=== PATIENT | male | born 1950 | race Caucasian/White ===

== ENCOUNTER 2016-10-21 19:17 | Emergency (ER) | payer MEDICARE, OTHER ==
[2016-10-21 19:35] VITALS: BP 91/62
[2016-10-21] MEDS ORDERED: Lactated Ringers 1,000 ML IV ONE ×2 (19:35→19:50)
[2016-10-21] MEDS ORDERED: Ondansetron 4 MG/2 ML SDV IVPUSH ONE (19:52)
[2016-10-21] MEDS ORDERED: fentaNYL 100 MCG/2 ML SDV IVPUSH ONE ×2 (19:52→20:27)
[2016-10-21] MEDS ORDERED: fentaNYL 100 MCG/2 ML SDV ONE (20:30)
[2016-10-21] MEDS ORDERED: Lactated Ringers 1,000 ML IV SCH (20:45)
[2016-10-21] MEDS ORDERED: HYDROmorphone 0.5 MG/0.5 ML Syringe ONE (20:49)
--- NOTE | 2016-10-21 20:52 | EDM.PDOC ---
ED HPI GENERAL MEDICAL PROBLEM - General Chief Complaint: Back Pain or Injury Stated Complaint: FLIPPED BY A COW Time Seen by Provider: 10/21/16 19:17 - History of Present Illness INITIAL COMMENTS - FREE TEXT/NARRATIVE: 66-year-old male presents to the emergency room after being injured. 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 This occurred about an hour and a half prior to arrival. The patient is having significant difficulty trying to ambulate. He has discomfort mostly around his pelvis he has some neck discomfort and some left elbow discomfort. He has some vague lower abdominal discomfort he has not had any nausea or vomiting. He has some neck discomfort and some discomfort at the base of the skull. He denies any loss of consciousness with this. Past medical history significant for hypertension he's not sure exactly what medications he is is on we later did confirm his medications. Lower Back Pain Score (Numeric/FACES): 10 - Related Data Allergies Allergy/AdvReac Type Severity Reaction Status Date / Time No Known Allergies Allergy Verified 10/21/16 19:26 Home Meds: Home Meds Aspirin 81 mg PO DAILY 10/21/16 [History] Fenofibrate 160 mg PO DAILY 10/21/16 [History] Hydrochlorothiazide 25 mg PO BEDTIME 10/21/16 [History] Lisinopril [Zestril] 40 mg PO DAILY 10/21/16 [History] Past Medical History Cardiovascular History: Reports: High Cholesterol, Hypertension Review of Systems - Review of Systems Review Of Systems: See Below Constitutional: Reports: No Symptoms Eyes: Reports: No Symptoms Ears: Reports: No Symptoms Nose: Reports: No Symptoms Mouth/Throat: Reports: No Symptoms Respiratory: Reports: No Symptoms, Pleuritic Chest Pain Cardiovascular: Reports: No Symptoms GI/Abdominal: Reports: Abdominal Pain. Denies: Constipation, Diarrhea, Nausea, Vomiting Genitourinary: Reports: No Symptoms Musculoskeletal: Reports: Neck Pain, Back Pain Skin: Reports: No Symptoms Neurological: Reports: No Symptoms Psychiatric: Reports: No Symptoms ED EXAM, GENERAL - Physical Exam Exam: See Below Exam Limited By: Other (Langlois coma score 15) General Appearance: Alert, No Apparent Distress, Other (He is not tachycardic but his initial blood pressures were in the upper 80s to lower 90s) Eye Exam: Bilateral Eye: EOMI, Normal Inspection, PERRL Ears: Normal External Exam, Normal Canal, Hearing Grossly Normal, Normal TMs Nose: Normal Inspection, Normal Mucosa, No Blood Throat/Mouth: Normal Inspection, Normal Oropharynx, No Airway Compromise Head: Atraumatic, Normocephalic, Other (He has discomfort at the insertion of the paraspinous muscles) Neck: Normal Inspection, Tender Lateral Respiratory/Chest: No Respiratory Distress, Lungs Clear, Normal Breath Sounds, Other (He has some vague chest wall discomfort) Cardiovascular: Regular Rate, Rhythm, No Edema, No Murmur GI/Abdominal: Normal Bowel Sounds, Soft, Non-Tender (Male) Exam: Other (No blood at the meatus). No: Inguinal Lymphadenopathy, Scrotal Swelling Back Exam: Other (Early on the patient was log rolled no step-off deformities he did have some discomfort especially in the lumbar spine and upper thoracic ) Extremities: Other (He has pelvic tenderness however no crepitation left femur is uncomfortable with palpation elbow on the left is sore however he has intact flexion extension supination pronation) Neurological: Alert, Oriented, CN II-XII Intact, Normal Cognition Psychiatric: Normal Affect, Normal Mood Course - Vital Signs Last Recorded V/S: Last Vital Signs Temp 35.8 C 10/21/16 19:26 Pulse 69 10/21/16 19:26 Resp 18 10/21/16 19:26 BP 91/62 10/21/16 19:26 Pulse Ox 96 10/21/16 19:26 - Orders/Labs/Meds Orders: Active Orders 24 hr Category Date Time Status Cervical Spine wo Cont [CT] Stat Exams 10/21/16 19:46 Taken Chest Abdomen Pelvis w Cont [CT] Stat Exams 10/21/16 19:46 Taken Elbow 2V Lt [CR] Stat Exams 10/21/16 22:43 Ordered Femur Min 2V Lt [CR] Stat Exams 10/21/16 22:42 Ordered Head wo Cont [CT] Stat Exams 10/21/16 19:46 Ordered Lumbar Spine wo Cont [CT] Stat Exams 10/21/16 19:46 Taken Thoracic Spine wo Cont [CT] Stat Exams 10/21/16 19:46 Taken UA W/O MICROSCOPIC [URIN] Stat Lab 10/21/16 19:48 Uncollected Lactated Ringers [Ringers, Lactated] 1,000 ml Med 10/21/16 20:45 Active IV ASDIRECTED Medication Orders Lactated Ringer's (Ringers, Lactated) 1,000 mls @ 125 mls/hr IV ASDIRECTED SITA Last Admin: 10/21/16 20:43 Dose: 125 mls/hr Labs: Laboratory Tests 10/21/16 10/21/16 10/21/16 Range/Units 19:30 19:30 19:30 WBC 15.28 H (4.23-9.07) K/mm3 RBC 4.23 L (4.63-6.08) M/mm3 Hgb 12.8 L (13.7-17.5) gm/L Hct 38.6 L (40.1-51.0) % MCV 91.3 (79.0-92.2) fl MCH 30.3 (25.7-32.2) pg MCHC 33.2 (32.2-35.5) g/dl RDW Std Deviation 42.7 (35.1-43.9) fL Plt Count 247 (163-337) K/mm3 MPV 10.5 (9.4-12.3) fl Neutrophils % (Manual) 81 H (40-60) % Band Neutrophils % 0 (0-10) % Lymphocytes % (Manual) 14 L (20-40) % Atypical Lymphs % 0 % Monocytes % (Manual) 4 (2-10) % Eosinophils % (Manual) 1 (0.8-7.0) % Basophils % (Manual) 0 L (0.2-1.2) Platelet Estimate Adequate RBC Morph Comment Normal PT 10.7 (8.0-13.0) SECONDS INR 0.98 APTT 22 (22-36) SECONDS Sodium 143 (136-145) mEq/L Potassium 3.7 (3.5-5.1) mEq/L Chloride 106 (98-107) mEq/L Carbon Dioxide 27 (21-32) mEq/L Anion Gap 13.7 (5-15) BUN 31 H (7-18) mg/dL Creatinine 1.7 H (0.7-1.3) mg/dL Est Cr Clr Drug Dosing 45.52 mL/min Estimated GFR (MDRD) 41 (>60) mL/min BUN/Creatinine Ratio 18.2 H (14-18) Glucose 126 H (80-115) mg/dL Lactic Acid (0.4-2.0) mmol/L Calcium 8.9 (8.5-10.1) mg/dL Total Bilirubin 0.4 (0.2-1.0) mg/dL AST 30 (15-37) U/L ALT 43 (16-63) U/L Alkaline Phosphatase 55 (46-116) U/L Lactate Dehydrogenase Cancelled Total Protein 7.1 (6.4-8.2) g/dl Albumin 4.1 (3.4-5.0) g/dl Globulin 3.0 gm/dL Albumin/Globulin Ratio 1.4 (1-2) Amylase 33 (25-115) U/L Blood Type Gel Antibody Screen 10/21/16 10/21/16 Range/Units 19:30 20:45 WBC (4.23-9.07) K/mm3 RBC (4.63-6.08) M/mm3 Hgb (13.7-17.5) gm/L Hct (40.1-51.0) % MCV (79.0-92.2) fl MCH (25.7-32.2) pg MCHC (32.2-35.5) g/dl RDW Std Deviation (35.1-43.9) fL Plt Count (163-337) K/mm3 MPV (9.4-12.3) fl Neutrophils % (Manual) (40-60) % Band Neutrophils % (0-10) % Lymphocytes % (Manual) (20-40) % Atypical Lymphs % % Monocytes % (Manual) (2-10) % Eosinophils % (Manual) (0.8-7.0) % Basophils % (Manual) (0.2-1.2) Platelet Estimate RBC Morph Comment PT (8.0-13.0) SECONDS INR APTT (22-36) SECONDS Sodium (136-145) mEq/L Potassium (3.5-5.1) mEq/L Chloride (98-107) mEq/L Carbon Dioxide (21-32) mEq/L Anion Gap (5-15) BUN (7-18) mg/dL Creatinine (0.7-1.3) mg/dL Est Cr Clr Drug Dosing mL/min Estimated GFR (MDRD) (>60) mL/min BUN/Creatinine Ratio (14-18) Glucose (80-115) mg/dL Lactic Acid 2.2 H (0.4-2.0) mmol/L Calcium (8.5-10.1) mg/dL Total Bilirubin (0.2-1.0) mg/dL AST (15-37) U/L ALT (16-63) U/L Alkaline Phosphatase (46-116) U/L Lactate Dehydrogenase Total Protein (6.4-8.2) g/dl Albumin (3.4-5.0) g/dl Globulin gm/dL Albumin/Globulin Ratio (1-2) Amylase (25-115) U/L Blood Type B POSITIVE Gel Antibody Screen Negative Meds: Medications Generic Name Dose Route Start Last Admin Trade Name Freq PRN Reason Stop Dose Admin Lactated Ringer's 1,000 mls @ 125 mls/hr 10/21/16 20:45 10/21/16 20:43 Ringers, Lactated IV 125 mls/hr ASDIRECTED SITA Administration Discontinued Medications Generic Name Dose Route Start Last Admin Trade Name Freq PRN Reason Stop Dose Admin Diazepam 5 mg 10/21/16 22:25 10/21/16 22:30 Valium IVPUSH 10/21/16 22:26 5 mg ONETIME ONE Administration Fentanyl 50 mcg 10/21/16 19:52 10/21/16 19:54 Sublimaze IVPUSH 10/21/16 19:53 50 mcg ONETIME ONE Administration Fentanyl 50 mcg 10/21/16 20:27 10/21/16 20:30 Sublimaze IVPUSH 10/21/16 20:28 50 mcg ONETIME ONE Administration Fentanyl Confirm 10/21/16 20:30 10/21/16 20:35 Sublimaze Administered 10/21/16 20:31 Not Given Dose 100 mcg .ROUTE .STK-MED ONE Hydromorphone HCl Confirm 10/21/16 20:49 10/21/16 20:59 Dilaudid Administered 10/21/16 20:50 Not Given Dose 0.5 mg .ROUTE .STK-MED ONE Hydromorphone HCl 0.5 mg 10/21/16 20:55 10/21/16 20:47 Dilaudid IVPUSH 10/21/16 20:56 0.5 mg ONETIME STA Administration Hydromorphone HCl 0.5 mg 10/21/16 21:26 10/21/16 21:17 Dilaudid IVPUSH 10/21/16 21:27 0.5 mg ONETIME STA Administration Lactated Ringer's 1,000 mls @ 999 mls/hr 10/21/16 19:35 10/21/16 19:35 Ringers, Lactated IV 10/21/16 20:35 999 mls/hr .BOLUS ONE Administration Lactated Ringer's 1,000 mls @ 999 mls/hr 10/21/16 19:50 10/21/16 19:51 Ringers, Lactated IV 10/21/16 20:50 999 mls/hr .BOLUS ONE Administration Iopamidol 100 ml 10/21/16 22:11 Isovue-370 (76%) IVPUSH 10/21/16 22:12 ONETIME ONE Morphine Sulfate 4 mg 10/21/16 22:11 Morphine IVPUSH 10/21/16 22:12 ONETIME ONE Ondansetron HCl 4 mg 10/21/16 19:52 10/21/16 19:53 Zofran IVPUSH 10/21/16 19:53 4 mg ONETIME ONE Administration - Re-Assessments/Exams Free Text/Narrative Re-Assessment/Exam: 10/21/16 22:11 Patient presented to emergency room initially his blood pressure was a little low however his pulse was not elevated he received 2 L of LR with his pelvis technique discomfort pelvic binder was applied and his blood pressure stabilized nicely at around 1:30 he is given a couple doses of fentanyl couple doses of Dilaudid really not had much relief from his discomfort will try some morphine. Patient had a normal head CT cervical spine is unremarkable chest CT was unremarkable. Abdomen pelvis showed no visceral or vascular injury, however he's got multiple fractures involving the left sacral alar left acetabulum bilateral inferior pubic rami and right superior pubic ramus most of these are nondisplaced or minimally displaced. The mid left femur views are negative for acute fracture. Two-view elbow is negative for acute fracture dislocation. Case discussed with Dr. Amezquita orthopedic surgeon construction helper who believes the patient would be better served to be transferred to a larger facility. And 9:00 this evening I did discuss situation with [facility]al and they were unsure if he would be able to take the patient. They got back to me. Excepting the patient. Dr. Vogel in the emergency room is the accepting. Departure - Departure Time of Disposition: 21:00 Disposition: DC/Tfer to Acute Hospital 02 Clinical Impression: Pelvic fracture - Discharge Information Referrals: Teresita Yates PA-C [Primary Care Provider] - Forms: ED Department Discharge - My Orders Last 24 Hours: My Active Orders 10/21/16 19:46 Cervical Spine wo Cont [CT] Stat Chest Abdomen Pelvis w Cont [CT] Stat Head wo Cont [CT] Stat Lumbar Spine wo Cont [CT] Stat Thoracic Spine wo Cont [CT] Stat 10/21/16 19:48 UA W/O MICROSCOPIC [URIN] Stat 10/21/16 20:45 Lactated Ringers [Ringers, Lactated] 1,000 ml IV ASDIRECTED 10/21/16 22:42 Femur Min 2V Lt [CR] Stat 10/21/16 22:43 Elbow 2V Lt [CR] Stat - Assessment/Plan Last 24 Hours: My Active Orders 10/21/16 19:46 Cervical Spine wo Cont [CT] Stat Chest Abdomen Pelvis w Cont [CT] Stat Head wo Cont [CT] Stat Lumbar Spine wo Cont [CT] Stat Thoracic Spine wo Cont [CT] Stat 10/21/16 19:48 UA W/O MICROSCOPIC [URIN] Stat 10/21/16 20:45 Lactated Ringers [Ringers, Lactated] 1,000 ml IV ASDIRECTED 10/21/16 22:42 Femur Min 2V Lt [CR] Stat 10/21/16 22:43 Elbow 2V Lt [CR] Stat
[2016-10-21] MEDS ORDERED: HYDROmorphone 0.5 MG/0.5 ML Syringe IVPUSH STA ×2 (20:55→21:26)
[2016-10-21] MEDS ORDERED: Iopamidol 755 Mg/ML 100 ML Bottle IVPUSH ONE (22:11)
[2016-10-21] MEDS ORDERED: Morphine 4 MG/ML Syringe IVPUSH ONE (22:11)
--- NOTE | 2016-10-22 09:36 | CR ---
Left elbow: Two views of the left elbow were obtained. Comparison: No previous elbow study. Minimal soft tissue calcification is seen anteriorly which is felt to be incidental. No joint effusion is seen. No acute fracture or other bony abnormality is noted. Slight chondrocalcinosis is noted within the cartilage of the elbow. Impression: 1. Slight degenerative change as noted above. 2. No acute abnormality is identified on two-view left elbow study. Diagnostic code #2
--- NOTE | 2016-10-22 09:36 | CR ---
Left femur: AP and lateral views of the left femur were obtained. No discrete fracture or other bony abnormality is seen. Impression: 1. No abnormality is appreciated on two-view left femur study. Diagnostic code #1
--- NOTE | 2016-10-22 09:37 | CT ---
CT cervical spine Technique: Multiple axial sections were obtained from above C1 inferiorly to the bottom of T1. Reconstructed sagittal and coronal images were reviewed. Comparison: No previous cervical spine imaging is available. Findings: Moderate disc space narrowing is noted at C6-C7 with anterior osteophytes. Degenerative spurring is noted within the uncovertebral joints primarily at C3-C4 on both sides. Mastoid sinuses and middle ear cavities are clear as seen. Posterior skull base is intact. Moderate left-sided neural foraminal stenosis noted at C3-C4. Other neural foramina appear to be patent. No fracture is identified. No abnormal subluxation is seen on the reconstructed sagittal images. Mild scattered degenerative change is seen within the uncovertebral joints. Impression: 1. Scattered degenerative change as described above. 2. Nothing acute is identified on CT study of the cervical spine. Diagnostic code #2 Agree with preliminary report issued by [facility] ([facility] preliminary report dictated on 10/21/16, 9:56 PM Central Time)
--- NOTE | 2016-10-22 09:37 | CT ---
CT lumbar spine Technique: Multiple axial sections through the lumbar spine were obtained. Reconstructed sagittal and coronal images were reviewed. Comparison: No previous lumbar spine study is available. Findings: Minimal anterior wedging of the superior endplate of L3 is seen believed to be old. Diffuse circumferential disc bulging seen throughout the lumbar spine. Vacuum phenomenon noted within the L4-L5 disc. Severe disc space narrowing noted at L5-S1 with spondylolisthesis. This spondylolisthesis measures approximately 8.5 mm. The spondylolisthesis is due to bilateral spondylolytic defects. No acute fracture is seen. Neural foramina are narrowed at L5-S1 on both sides. Other neural foramina are patent. Impression: 1. Spondylolisthesis at L5-S1 secondary to bilateral spondylolysis. Degenerative disc change seen with bilateral neural foraminal stenosis. 2. Other less prominent degenerative change as described above. Nothing acute is appreciated. Diagnostic code #2 Agree with preliminary report issued by [facility] ([facility] preliminary report dictated on 10/21/16, 10:10 PM Central Time)
--- NOTE | 2016-10-22 09:37 | CT ---
Head CT Technique: Multiple axial sections through the brain were obtained. Intravenous contrast was not utilized. Comparison: No previous intracranial imaging is available. Findings: Ventricles along with basal cisterns and sulci over the convexities are within normal limits for the patient's age. No abnormal parenchymal densities are seen. No evidence of intracranial hemorrhage. No midline shift or mass effect is seen. Bone window settings were reviewed which show no discrete calvarial abnormality. No significant findings seen within the paranasal sinuses. Impression: 1. No acute intracranial abnormality is identified on noncontrast head CT exam. Diagnostic code #1 Agree with preliminary report issued by [facility] ([facility] preliminary report dictated on 10/21/16, 9:45 PM Central Time)
--- NOTE | 2016-10-22 09:37 | CT ---
CT thoracic spine Technique: Multiple axial sections through the thoracic spine were obtained. Reconstructed sagittal and coronal images were reviewed. Findings: Scattered endplate osteophytes are noted within the mid and lower thoracic spine. Vertebral body heights are maintained. No bony central or bony neural foraminal stenosis is seen. No fracture is identified. No abnormal subluxation is seen. No paravertebral soft tissue swelling is identified. Impression: 1. Scattered degenerative endplate spurring. 2. Nothing acute is seen on CT study of the thoracic spine. Diagnostic code #2 Agree with preliminary report issued by [facility] ([facility] preliminary report dictated on 10/21/16, 10:11 PM Central Time)
--- NOTE | 2016-10-22 09:37 | CT ---
CT chest Technique: Multiple axial sections were obtained through the chest. Intravenous contrast was utilized. Comparison: Prior chest CT is available dated 04/27/10. Findings: No pericardial thickening is seen. Mild coronary artery calcification is noted. Mild atherosclerotic calcification noted within the thoracic aorta and branch vessels. Mediastinum and hilar regions show no adenopathy or mass. Nodule is identified within the right middle lobe. This nodule is identified on prior CT exam and therefore felt to be due to granuloma. Lungs show no pulmonary contusion. No pneumothorax is seen. Bone window settings were reviewed which show no discrete rib fracture. Impression: 1. Small nodule within the right middle lobe which remains stable from prior exam. This is incidental. 2. Nothing acute is identified on CT study of the chest. Diagnostic code #2 Agree with preliminary report issued by [employer] ([employer] preliminary report dictated on 10/21/16, 9:50 PM Central Time) CT abdomen and pelvis Technique: Multiple axial sections were obtained from above the dome of the diaphragm inferiorly through the pubic symphysis. Intravenous contrast was utilized. No oral contrast has been given. Delayed images were also obtained through the pelvis. Comparison: Previous CT abdomen and pelvis exam of 05/14/12 is available. Findings: Slight fatty infiltration seen within the liver. Mild fatty infiltration seen within the pancreas. Adrenal glands show no nodule. Gallbladder shows no calcified gallstones. Kidneys show symmetric contrast enhancement without hydronephrosis or mass. Aorta shows atherosclerotic change. Mild distal ectasia is seen with AP dimension of 2.5 cm. Atherosclerotic change continues into the iliac vessels. No retroperitoneal adenopathy or mesenteric abnormalities are seen. No pelvic mass or adenopathy is seen. Delayed images show contrast within the right and left ureters and within the bladder. Bone window settings were reviewed which show fracture within the left side of the sacrum which appears without significant displacement. Fracture also noted within the inferior pubic rami on both sides as well as superior pubic rami on both sides. Left sided pubic ramus fracture slightly involves the anterior and inferior acetabulum. Impression: 1. Pelvic fractures as described above. 2. Other incidental findings. Nothing acute is seen within the abdomen or pelvis. Diagnostic code #3 Agree with preliminary report issued by [employer] ([employer] preliminary report dictated on 10/21/16, 10:01 PM Central Time)
== END 2016-10-21 22:30 ==
LOC: JD.ED 19:17
DX: S32.10XA Unspecified fracture of sacrum, initial encounter for closed fracture (principal); S32.402A Unspecified fracture of left acetabulum, initial encounter for closed fracture; S32.511A Fracture of superior rim of right pubis, initial encounter for closed fracture; S32.592A Other specified fracture of left pubis, initial encounter for closed fracture; S32.591A Other specified fracture of right pubis, initial encounter for closed fracture; M54.2 Cervicalgia; I10 Essential (primary) hypertension; E78.00 Pure hypercholesterolemia, unspecified; Z79.899 Other long term (current) drug therapy; Z79.82 Long term (current) use of aspirin; W55.22XA Struck by cow, initial encounter; Y92.89 Other specified places as the place of occurrence of the external cause
CPT/HCPCS: 36415; 70450; 71260; 72125; 72128; 72131; 73070; 73552; 74177; 80053; 81003; 82150; 83605; 85025; 85610; 85730; 86850; 86900; 86901; 96361; 96374; 96375; 96376; 99285; J1170; J2270; J2405; J3010; J3360; J7120

== ENCOUNTER 2019-07-29 12:12 | Emergency (ER) | payer MEDICARE, OTHER ==
[2019-07-29 12:32] VITALS: BP 156/98; PULSE 57
[2019-07-29] MEDS ORDERED: Metoclopramide 10 MG/2 ML SDV IVPUSH ONE (12:37)
[2019-07-29] MEDS ORDERED: HYDROmorphone 1 MG/ML Syringe IVPUSH ONE (12:37)
[2019-07-29] MEDS ORDERED: Midazolam 1 MG/ML 5 ML SDV IVPUSH ONE (12:38)
[2019-07-29] MEDS ORDERED: Sodium Chloride 0.9% 1,000 ML IV SCH (12:45)
--- NOTE | 2019-07-29 12:45 | EDM.PDOC ---
ED HPI GENERAL MEDICAL PROBLEM - General Chief Complaint: Upper Extremity Injury/Pain Stated Complaint: POSS DISLOCATED RIGHT SHOULDER Time Seen by Provider: 07/29/19 12:26 Source of Information: Reports: Patient, Family (spouse) History Limitations: Reports: No Limitations - History of Present Illness INITIAL COMMENTS - FREE TEXT/NARRATIVE: 69-year-old male presents to the ED after slipping and falling in the workplace. He is not exactly sure how it occurred but he injured his right shoulder and clinically appears to have a anterior dislocation of the shoulder. Injury occurred right at 12:00 noon today. He has not eaten since breakfast. He denies hitting his head or losing consciousness. Denies hurting his ribs or having pain in any other place. He has some mild numbness and tingling in his fingers. He is unable to of course move the shoulder either forwards or abducted. He has no past history of dislocation of the shoulder. No previous right shoulder surgery. Of note the patient is right-hand dominant. Onset: Today Onset Date: 07/29/19 Onset Time: 12:00 Duration: Minutes: Location: Reports: Upper Extremity, Right Quality: Reports: Ache (Shoulder.), Throbbing Severity: Severe Improves with: Reports: Rest (9-10) Worsens with: Reports: Other Context: Reports: Trauma (Slipped and fell in the workplace with acute injury to the right shoulder.). 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.) Right Shoulder Pain Score (Numeric/FACES): 10 - Related Data Allergies Allergy/AdvReac Type Severity Reaction Status Date / Time No Known Allergies Allergy Verified 07/29/19 12:32 Home Meds: Home Meds Aspirin 81 mg PO DAILY 10/21/16 [History] Fenofibrate 160 mg PO DAILY 10/21/16 [History] Hydrochlorothiazide 25 mg PO BEDTIME 10/21/16 [History] Lisinopril [Zestril] 40 mg PO DAILY 10/21/16 [History] oxyCODONE HCl/Acetaminophen [Percocet 5-325 mg Tablet] 1 - 2 each PO Q4H PRN # 20 tablet 07/29/19 [Rx] Past Medical History HEENT History: Reports: None Cardiovascular History: Reports: High Cholesterol, Hypertension Respiratory History: Reports: None Gastrointestinal History: Reports: None Genitourinary History: Reports: None Neurological History: Reports: None Psychiatric History: Reports: None Endocrine/Metabolic History: Reports: Obesity/BMI 30+ Hematologic History: Reports: None Immunologic History: Reports: None Oncologic (Cancer) History: Reports: None Dermatologic History: Reports: None - Infectious Disease History Infectious Disease History: Reports: None - Past Surgical History Musculoskeletal Surgical History: Reports: Other (See Below) Other Musculoskeletal Surgeries/Procedures:: Left Shoulder Dislocation 07/29/19. Social & Family History - Tobacco Use Smoking Status *Q: Never Smoker - Caffeine Use Caffeine Use: Reports: Tea - Recreational Drug Use Recreational Drug Use: No - Living Situation & Occupation Living situation: Reports: Occupation: Employed Review of Systems - Review of Systems Review Of Systems: See Below Constitutional: Reports: No Symptoms Eyes: Reports: Glasses (Glasses for reading) Ears: Reports: Other Nose: Reports: No Symptoms (Only hard of hearing) Mouth/Throat: Reports: Other Respiratory: Reports: No Symptoms (Denies any injuries to his tongue or teeth.) . Denies: Shortness of Breath, Wheezing, Pleuritic Chest Pain, Cough Cardiovascular: Reports: Other (Has mild hypertension and hypertriglyceridemia) GI/Abdominal: Reports: No Symptoms Genitourinary: Reports: Other (Urinary frequency with nocturia usually x2 or 3 known BPH.) Musculoskeletal: Reports: Neck Pain, Back Pain, Joint Pain (Nasal pain lower back and neck and shoulder pain intermittently) Skin: Reports: No Symptoms Neurological: Reports: No Symptoms Psychiatric: Reports: No Symptoms ED EXAM, GENERAL - Physical Exam Exam: See Below Exam Limited By: No Limitations General Appearance: Alert, WD/WN, Moderate Distress, Other (Temperature is 35.6 which is an accurate. Heart rate is 57 respiratory of 18 BP elevated 1 5698 pulse ox 96% on room air) Eye Exam: Bilateral Eye: Normal Inspection Throat/Mouth: Normal Inspection, Normal Lips, Normal Oropharynx, Other (He has a prominent vein on the anterior) Head: Atraumatic ( right side of his tongue but no sign of tongue or dental injury from his fall.), Normocephalic, Other Neck: Normal Inspection (No outward signs of head or facial trauma), Supple, Non -Tender, Full Range of Motion. No: Carotid Bruit, Lymphadenopathy (L), Lymphadenopathy (R) Respiratory/Chest: No Respiratory Distress, Lungs Clear, Normal Breath Sounds, No Accessory Muscle Use, Chest Non-Tender, Other Cardiovascular: Normal Peripheral Pulses, Regular Rate, Rhythm, No Gallop, No Murmur (From compression of his ribs and sternum and clavicles reveal no fractures.), No Rub, Bradycardia (Bradycardia I got 60/min.) Peripheral Pulses: 2+: Posterior Tibial (L), Posterior Tibial (R), Dorsalis Pedis (L), Dorsalis Pedis (R) GI/Abdominal: Normal Bowel Sounds, Soft, Non-Tender, No Organomegaly, No Mass, Pelvis Stable, Other (Abdominal girth precludes ability to palpate solid organs. ) Back Exam: Normal Inspection, Full Range of Motion, Other (Increased lordosis lumbar spine.) Extremities: Other (Left upper extremity is normal both lower extremities are normal. Right upper extremity shows an anterior dislocation clinically of the shoulder. He has good ulnar and radial pulses. He has full pronation supination at the elbow. He has good sensation in the distribution of the axillary nerve the radial nerve and the ulnar nerve with ability to abduct and adduct his fingers.) Neurological: Alert, Oriented, CN II-XII Intact, Normal Cognition Psychiatric: Other Skin Exam: Warm, Dry (A lot of pain), Intact, Normal Color, No Rash ED TRAUMA EXTREMITY PROCEDURES - Joint Reduction Shoulder Sedation: Conscious Sedation Technique: Traction/Counter Traction Number of Attempts: Other: Post-Reduction Imaging: Completely Reduced ED PROCEDURAL SEDATION - Pre Procedure Indications: shoulder dislocation Preparations: procedure explained, consent signed, oxygen, continuous 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, 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, constant attendance - Physical Exam Airway: normal anatomy Cardiovascular: normal heart sounds Respiratory: normal breath sounds Neurological: alert, responsive, moderate distress Meilampati Classification: 2 (Tonsillar pillars and uvula hidden by base of tongue) - Procedure Sedation Sedation: versed (parenteral) (6 mg), fentanyl (100 mcg) ASA Classification: 2 (Patient with a mild systemic disease) - Intra Procedure Condition during procedure: moderately sedated, maintained airway well, handled secretions adequately, other Complications: none (Wired oxygen support with 3 L/min by nasal cannula.) Reversal: none - Post Procedure Condition after procedure: alert, responds to verbal stimuli - Discharge Condition Patient returned to pre-procedure baseline: Yes Alert prior to discharge: Yes Ambulatory with assistance: Yes Vital signs normal: Yes Time spent with sedated patient: 20 min Course - Vital Signs Last Recorded V/S: Last Vital Signs Temp 35.6 C L 07/29/19 12:27 Pulse 57 L 07/29/19 12:27 Resp 18 07/29/19 12:27 BP 156/98 H 07/29/19 12:27 Pulse Ox 96 07/29/19 12:27 - Orders/Labs/Meds Orders: Active Orders 24 hr Category Date Time Status Sodium Chloride 0.9% [Normal Saline] 1,000 ml Med 07/29/19 12:45 Active IV ASDIRECTED Durable Medical Equipment for Discharge [DME for Oth 07/29/19 14:59 Ordered Discharge] [COMM] Stat Medication Orders Sodium Chloride (Normal Saline) 1,000 mls @ 150 mls/hr IV ASDIRECTED SITA Last Admin: 07/29/19 13:00 Dose: 150 mls/hr Meds: Medications Generic Name Dose Route Start Last Admin Trade Name Freq PRN Reason Stop Dose Admin Sodium Chloride 1,000 mls @ 150 mls/hr 07/29/19 12:45 07/29/19 13:00 Normal Saline IV 150 mls/hr ASDIRECTED SITA Administration Discontinued Medications Generic Name Dose Route Start Last Admin Trade Name Freq PRN Reason Stop Dose Admin Fentanyl 100 mcg 07/29/19 12:39 07/29/19 13:11 Sublimaze IVPUSH 07/29/19 12:40 50 mcg ONETIME ONE Administration Hydromorphone HCl 1 mg 07/29/19 12:37 07/29/19 13:01 Dilaudid IVPUSH 07/29/19 12:38 1 mg ONETIME ONE Administration Metoclopramide HCl 10 mg 07/29/19 12:37 07/29/19 13:00 Reglan IVPUSH 07/29/19 12:38 10 mg ONETIME ONE Administration Midazolam HCl 6 mg 07/29/19 12:38 Versed 1 Mg/Ml IVPUSH 07/29/19 12:39 ONETIME ONE Midazolam HCl Confirm 07/29/19 12:49 07/29/19 13:32 Versed 1 Mg/Ml Administered 07/29/19 12:50 Not Given Dose 6 mg .ROUTE .STK-MED ONE Midazolam HCl 6 mg 07/29/19 13:31 07/29/19 13:15 Versed 1 Mg/Ml IVPUSH 07/29/19 13:32 1 mg ONETIME ONE Administration - Radiology Interpretation Free Text/Narrative:: 69-year-old male presents to the ED after slipping and falling in the workplace right at noon today. He appears to have suffered an anterior dislocation of his right shoulder. He is unable to forward flex or abduct in any fashion or form. No other injuries were identified on complete physical exam. Plan he will have x-rays of the right shoulder performed. He will have IV started with normal saline at 150 mils per hour. He will be given Dilaudid 1 mg IV with Reglan 10 mg IV immediately for pain relief. If the x-rays do not reveal any fractures he we will proceed with action of his right shoulder under conscious sedation using Versed and fentanyl. Not eaten since breakfast - Re-Assessments/Exams Free Text/Narrative Re-Assessment/Exam: 07/29/19 13:00: Trays of the right shoulder show a significant anterior dislocation of the right shoulder with no obvious fractures identified in the glenoid scapula. There is no fracture of the humeral head. 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 Patient will receive conscious patient to reduce his anterior dislocated right shoulder 07/29/19 13:30 shoulder has been reduced but it took 6 attempts for me to get it back into position I extremely difficult. Checked with x-ray and it is back in normal anatomical position. On the one view that I had a look at I did not see any obvious fractures. He has good distal pulses to the wrist. Will check sensation once he is more alert. He did require a total of 6 mg of Versed IV and 100 mcg of fentanyl to provide conscious sedation. 07/29/19 14:54 patient will be discharged home is easily he is alert and oriented. He will be placed in a sling and swath. I will send him home with Percocet tabs 5/325 mg 1 or 2 every 4-6 hours for pain relief. Going to have him follow-up with Dr. John in about 10 to 12 days time for review of his shoulder as I am concerned that he has torn rotator cuff tendons during this injury. I repeated the examination of the axillary nerve the radial nerve and the ulnar nerve function and they are all normal. Departure - Departure Time of Disposition: 14:59 Disposition: Home, Self-Care 01 Condition: Fair Clinical Impression: Closed anterior dislocation of right shoulder Qualifiers: Encounter type: initial encounter Qualified Code(s): S43.014A - Anterior dislocation of right humerus, initial encounter - Discharge Information Prescriptions: oxyCODONE HCl/Acetaminophen [Percocet 5-325 mg Tablet] 1 - 2 each PO Q4H PRN # 20 tablet PRN Reason: pain relief. Instructions: Shoulder Dislocation, How To Use a Sling, [id number] Referrals: Teresita Yates PA-C [Primary Care Provider] - Forms: ED Department Discharge Additional Instructions: Evaluation in the emergency room today in regards to acute injury to your right shoulder from a slip and fall in the workplace at about noon today. Examination we have suggested an anterior dislocation of your right shoulder and this was confirmed by x-ray. No fractures were identified. Under conscious sedation the shoulder was replaced back into its normal anatomical position with a great deal of difficulty I will admit. He will having significant pain in the shoulder which is concerning for rotator cuff tear from the type of injury you sustained. X-rays done after reduction of the shoulder do not reveal any broken bones. 3 minutes to isolate the right shoulder by sling and swath for the next 10 to 12 days. I would asked that you make a follow-up appointment to see Dr. John orthopedic surgeon in 10 to 12 days time for review of your shoulder. I suspect you may require further investigations to rule out rotator cuff tear. Pain management is Motrin 600 mg every 6 hours as needed. These call Dr. John's office tomorrow morning at [phone] to arrange an appointment. Start taking MiraLAX powder 17 g or 1 scoop daily while taking the strong pain pills as they tend to cause significant constipation. Sepsis Event Note - Evaluation Sepsis Screening Result: No Definite Risk - Focused Exam Vital Signs: Vital Signs Temp Pulse Resp BP Pulse Ox 07/29/19 12:27 35.6 C L 57 L 18 156/98 H 96 Date Exam was Performed: 07/29/19 Time Exam was Performed: 15:21 - My Orders Last 24 Hours: My Active Orders 07/29/19 12:45 Sodium Chloride 0.9% [Normal Saline] 1,000 ml IV ASDIRECTED 07/29/19 14:59 Durable Medical Equipment for Discharge [DME for Discharge] [COMM] Stat - Assessment/Plan Last 24 Hours: My Active Orders 07/29/19 12:45 Sodium Chloride 0.9% [Normal Saline] 1,000 ml IV ASDIRECTED 07/29/19 14:59 Durable Medical Equipment for Discharge [DME for Discharge] [COMM] Stat
[2019-07-29] MEDS ORDERED: Midazolam 1 MG/ML 2 ML SDV ONE (12:49)
[2019-07-29] MEDS: fentaNYL 100 MCG/2 ML SDV IVPUSH ONE ×2 (13:05→13:11)
[2019-07-29] MEDS: Midazolam 1 MG/ML 2 ML SDV IVPUSH ONE ×4 (13:07→13:15)
--- NOTE | 2019-07-29 13:23 | CR ---
Right shoulder: Two views of the right shoulder were obtained. Comparison: No prior shoulder study. Anterior dislocation is seen. Joint space narrowing is noted within the acromioclavicular joint. No additional abnormality is appreciated. Impression: 1. Dislocated right shoulder. Diagnostic code #3 Study was dictated in MDT
--- NOTE | 2019-07-29 14:57 | CR ---
Right shoulder: Single AP view of the right shoulder was obtained. Comparison: Previous right shoulder study performed earlier on same day (12:43 PM). Previous dislocation has been reduced. Slight degenerative change is noted within the right acromioclavicular joint. No additional abnormality is seen. Impression: 1. Reduction of previous dislocation. Diagnostic code #2 Study was dictated in MDT
== END 2019-07-29 15:30 | disposition home or self-care (01) ==
LOC: JD.ED 12:12
DX: S43.014A Anterior dislocation of right humerus, initial encounter (principal); I10 Essential (primary) hypertension; E78.00 Pure hypercholesterolemia, unspecified; E66.9 Obesity, unspecified; Z68.38 Body mass index [BMI] 38.0-38.9, adult; Z79.82 Long term (current) use of aspirin; Z79.899 Other long term (current) drug therapy; W01.0XXA Fall on same level from slipping, tripping and stumbling without subsequent striking against object, initial encounter; Y99.0 Civilian activity done for income or pay
CPT/HCPCS: 23650; 73020; 73030; 96361; 96374; 96375; 99152; 99153; 99284; J1170; J2250; J2765; J3010; J7030; 23655; 99283

== ENCOUNTER 2020-10-22 18:13 | Emergency (ER) | payer MEDICARE, OTHER ==
[2020-10-22 18:25] VITALS: BP 138/91; PULSE 95
[2020-10-22] MEDS ORDERED: Sodium Chloride 0.9% 10 ML Syringe FLUSH PRN (18:36)
--- NOTE | 2020-10-22 18:46 | EDM.PDOC ---
ED HPI GENERAL MEDICAL PROBLEM - General Chief Complaint: General Stated Complaint: HEADACHE/SOB Time Seen by Provider: 10/22/20 18:27 Source of Information: Reports: Patient, RN Notes Reviewed History Limitations: Reports: No Limitations - History of Present Illness INITIAL COMMENTS - FREE TEXT/NARRATIVE: Patient is a 7-year-old male who presents to the ER for the evaluation of his headache, and chest pain and shortness of breath. Patient states that his headache started this morning, on the posterior side of his head and extends down the back of his neck. He took some [place] earlier this morning but has not had much relief he does not have an issue with headaches prior to this. He does state that he is normal shortness of breath issues, and has not had any increasing cough, but he states his chest is somewhat uncomfortable. He is complaining of a subjective fevers or chills at home, and his temperature was elevated at time of triage at 99.4 F. He does not think he has been around anyone that is been sick, he feels nauseated but has had no vomiting or diarrhea. Has a history of hypertension but denies any other medical history. Primary care provider is Teresita Yates. Headache Pain Score (Numeric/FACES): 10 - Related Data Allergies Allergy/AdvReac Type Severity Reaction Status Date / Time No Known Allergies Allergy Verified 10/22/20 18:25 Home Meds: Home Meds Aspirin 81 mg PO DAILY 10/21/16 [History] Fenofibrate 160 mg PO DAILY 10/21/16 [History] Hydrochlorothiazide 25 mg PO BEDTIME 10/21/16 [History] lisinopriL [Zestril] 40 mg PO DAILY 10/21/16 [History] oxyCODONE HCl/Acetaminophen [Percocet 5-325 mg Tablet] 1 - 2 each PO Q4H PRN #20 tablet 07/29/19 [Rx] Doxycycline [Vibramycin] 100 mg PO BID 7 Days #14 tab 10/22/20 [Rx] Past Medical History Cardiovascular History: Reports: High Cholesterol, Hypertension Respiratory History: Reports: SOB Psychiatric History: Reports: None Endocrine/Metabolic History: Reports: Obesity/BMI 30+ - Infectious Disease History Infectious Disease History: Reports: Chicken Pox, Mumps - Past Surgical History GI Surgical History: Reports: Appendectomy, Hernia, Abdominal Musculoskeletal Surgical History: Reports: Other (See Below) Other Musculoskeletal Surgeries/Procedures:: Left Shoulder Dislocation 07/29/19. Social & Family History - Tobacco Use Tobacco Use Status *Q: Former Tobacco User Years of Tobacco use: 25 Packs/Tins Daily: 2 Used Tobacco, but Quit: Yes Month/Year Tobacco Last Used: 05/1990 - Caffeine Use Caffeine Use: Reports: Soda, Tea - Recreational Drug Use Recreational Drug Use: No - Living Situation & Occupation Living situation: Reports: Occupation: Employed ED ROS GENERAL - Review of Systems Review Of Systems: Comprehensive ROS is negative, except as noted in HPI. ED EXAM, GENERAL - Physical Exam Exam: See Below Exam Limited By: No Limitations General Appearance: Alert, WD/WN, No Apparent Distress Head: Atraumatic, Normocephalic Neck: Normal Inspection Respiratory/Chest: No Respiratory Distress, Lungs Clear, Normal Breath Sounds, No Accessory Muscle Use, Chest Non-Tender Cardiovascular: Normal Peripheral Pulses, Regular Rate, Rhythm, No Edema Peripheral Pulses: 2+: Radial (L), Radial (R) GI/Abdominal: Normal Bowel Sounds, Soft, Non-Tender, No Distention, No Mass Extremities: Normal Inspection, Normal Capillary Refill Neurological: Alert, Oriented, Normal Cognition, No Motor/Sensory Deficits Psychiatric: Normal Affect, Normal Mood Skin Exam: Warm, Dry, Intact, Normal Color, No Rash #1 Interpretation EKG Date: 10/22/20 Time: 18:23 Rhythm: NSR Rate (Beats/Min): 90 [place]: Normal P-Wave: Present QRS: Normal ST-T: Normal QT: Normal EKG Interpretation Comments: No obvious ischemia or acute ST changes noted, reviewed by myself and Dr. Briscoe. Course - Vital Signs Last Recorded V/S: Last Vital Signs Temp 99.4 F 10/22/20 18:21 Pulse 95 10/22/20 18:21 Resp 16 10/22/20 18:21 BP 138/91 H 10/22/20 18:21 Pulse Ox 100 10/22/20 18:21 - Orders/Labs/Meds Orders: Active Orders 24 hr Category Date Time Status EKG Documentation Completion [RC] STAT Care 10/22/20 18:25 Active Peripheral IV Care [RC] . DIRECTED Care 10/22/20 18:36 Ordered Chest 1V Frontal [CR] Stat Exams 10/22/20 18:35 Ordered CULTURE BLOOD [BC] Stat Lab 10/22/20 18:36 Ordered CULTURE BLOOD [BC] Stat Lab 10/22/20 18:36 Ordered UA W/MICROSCOPIC [URIN] Stat Lab 10/22/20 18:35 Ordered Sodium Chloride 0.9% [Saline Flush] Med 10/22/20 18:36 Ordered 10 ml FLUSH ASDIRECTED PRN Blood Culture x2 Reflex Set [OM.PC] Stat Oth 10/22/20 18:35 Ordered Peripheral IV Insertion Adult [OM.PC] Routine Oth 10/22/20 18:36 Ordered Medication Orders Sodium Chloride (Sodium Chloride 0.9% 10 Ml Syringe) 10 ml FLUSH ASDIRECTED PRN PRN Reason: Keep Vein Open Last Admin: 10/22/20 19:37 Dose: 10 ml Documented by: GE Labs: Laboratory Tests 10/22/20 10/22/20 10/22/20 Range/Units 19:05 19:10 19:10 WBC 15.27 H (4.23-9.07) K/mm3 RBC 4.89 (4.63-6.08) M/mm3 Hgb 15.0 D (13.7-17.5) gm/dl Hct 43.7 (40.1-51.0) % MCV 89.4 (79.0-92.2) fl MCH 30.7 (25.7-32.2) pg MCHC 34.3 (32.2-35.5) g/dl RDW Std Deviation 43.9 (35.1-43.9) fL Plt Count 155 L D (163-337) K/mm3 MPV 10.5 (9.4-12.3) fl Neutrophils % (Manual) 92 H (40-60) % Band Neutrophils % 0 (0-10) % Lymphocytes % (Manual) 4 L (20-40) % Atypical Lymphs % 0 % Monocytes % (Manual) 4 (2-10) % Eosinophils % (Manual) 0 L (0.8-7.0) % Basophils % (Manual) 0 L (0.2-1.2) Platelet Estimate Decreased Plt Morphology Comment Normal RBC Morph Comment Normal PT 11.4 (9.7-12.0) SECONDS INR 1.07 APTT 25.9 (21.7-31.4) SECONDS Sodium (136-145) mEq/L Potassium (3.5-5.1) mEq/L Chloride (98-107) mEq/L Carbon Dioxide (21-32) mEq/L Anion Gap (5-15) BUN (7-18) mg/dL Creatinine (0.7-1.3) mg/dL Est Cr Clr Drug Dosing mL/min Estimated GFR (MDRD) (>60) mL/min BUN/Creatinine Ratio (14-18) Glucose (70-99) mg/dL Lactic Acid (0.4-2.0) mmol/L Calcium (8.5-10.1) mg/dL Magnesium (1.8-2.4) mg/dL Total Bilirubin (0.2-1.0) mg/dL AST (15-37) U/L ALT (16-63) U/L Alkaline Phosphatase (46-116) U/L Troponin I (0.00-0.056) ng/mL NT-Pro-B Natriuret Pep (0-125) pg/mL Total Protein (6.4-8.2) g/dl Albumin (3.4-5.0) g/dl Globulin gm/dL Albumin/Globulin Ratio (1-2) Influenza Type A RNA Negative (NEGATIVE) Influenza Type B RNA Negative (NEGATIVE) SARS-CoV-2 RNA (DAY) Negative (NEGATIVE) 10/22/20 10/22/20 10/22/20 Range/Units 19:10 19:10 19:10 WBC (4.23-9.07) K/mm3 RBC (4.63-6.08) M/mm3 Hgb (13.7-17.5) gm/dl Hct (40.1-51.0) % MCV (79.0-92.2) fl MCH (25.7-32.2) pg MCHC (32.2-35.5) g/dl RDW Std Deviation (35.1-43.9) fL Plt Count (163-337) K/mm3 MPV (9.4-12.3) fl Neutrophils % (Manual) (40-60) % Band Neutrophils % (0-10) % Lymphocytes % (Manual) (20-40) % Atypical Lymphs % % Monocytes % (Manual) (2-10) % Eosinophils % (Manual) (0.8-7.0) % Basophils % (Manual) (0.2-1.2) Platelet Estimate Plt Morphology Comment RBC Morph Comment PT (9.7-12.0) SECONDS INR APTT (21.7-31.4) SECONDS Sodium 139 (136-145) mEq/L Potassium 3.3 L (3.5-5.1) mEq/L Chloride 100 (98-107) mEq/L Carbon Dioxide 27 (21-32) mEq/L Anion Gap 15.3 H (5-15) BUN 16 (7-18) mg/dL Creatinine 1.2 (0.7-1.3) mg/dL Est Cr Clr Drug Dosing 59.14 mL/min Estimated GFR (MDRD) 60 (>60) mL/min BUN/Creatinine Ratio 13.3 L (14-18) Glucose 110 H (70-99) mg/dL Lactic Acid 1.9 (0.4-2.0) mmol/L Calcium 9.2 (8.5-10.1) mg/dL Magnesium 1.9 (1.8-2.4) mg/dL Total Bilirubin 0.7 (0.2-1.0) mg/dL AST 46 H (15-37) U/L ALT 106 H (16-63) U/L Alkaline Phosphatase 87 (46-116) U/L Troponin I < 0.017 (0.00-0.056) ng/mL NT-Pro-B Natriuret Pep 88 (0-125) pg/mL Total Protein 7.5 (6.4-8.2) g/dl Albumin 4.0 (3.4-5.0) g/dl Globulin 3.5 gm/dL Albumin/Globulin Ratio 1.1 (1-2) Influenza Type A RNA (NEGATIVE) Influenza Type B RNA (NEGATIVE) SARS-CoV-2 RNA (DAY) (NEGATIVE) Meds: Medications Generic Name Dose Route Start Last Admin Trade Name Freq PRN Reason Stop Dose Admin Sodium Chloride 10 ml 10/22/20 18:36 10/22/20 19:37 Sodium Chloride 0.9% 10 Ml Syringe FLUSH 10 ml ASDIRECTED PRN Administration Keep Vein Open Discontinued Medications Generic Name Dose Route Start Last Admin Trade Name Freq PRN Reason Stop Dose Admin Hydromorphone HCl 0.5 mg 10/22/20 21:08 Hydromorphone 0.5 Mg/0.5 Ml Syringe IVPUSH 10/22/20 21:09 ONETIME ONE Ketorolac Tromethamine 30 mg 10/22/20 19:08 10/22/20 19:37 Ketorolac 30 Mg/Ml Sdv IVPUSH 10/22/20 19:09 30 mg ONETIME ONE Administration - Re-Assessments/Exams Free Text/Narrative Re-Assessment/Exam: 10/22/20 19:06 Patient presents to the ER for his headache, and other general symptoms. Have ordered laboratory evaluation, EKG and a chest x-ray for further evaluation. EKG at time of triage shows normal sinus rhythm with no acute ST abnormalities. 10/22/20 21:10 Patient's labs reviewed, chest x-ray shows an area of concern on the right chest, possible consolidation by my eye, official radiology read is still pending. White count is elevated at 15.27 with 92% neutrophils and 0 bands. Coagulation studies are within normal range, CMP demonstrates a potassium mildly low at 3.3, troponin undetectably low, Covid/flu screen is both negative for today's purposes. Other portion of the metabolic panel are not worrisome at this time. Patient did not get much headache relief from the Toradol given, we will try 0.5 mg Dilaudid for management. Plan is to treat the patient for community-acquired pneumonia due to the elevated white count, fever and chest x- ray findings. Departure - Departure Time of Disposition: 21:13 Disposition: Home, Self-Care 01 Condition: Good Clinical Impression: Pneumonia Qualifiers: Pneumonia type: due to unspecified organism Laterality: right Lung location: unspecified part of lung Qualified Code(s): J18.9 - Pneumonia, unspecified organism - Discharge Information *PRESCRIPTION DRUG MONITORING PROGRAM REVIEWED*: No *COPY OF PRESCRIPTION DRUG MONITORING REPORT IN PATIENT JINA: No Instructions: Community-Acquired Pneumonia, Adult, [id number] Referrals: Teresita Yates PA-C [Primary Care Provider] - Forms: ED Department Discharge Additional Instructions: You were evaluated in the ER today for your headache, shortness of breath. Laboratory evaluation demonstrates an elevated white count, suspicious for bacterial infection, your chest x-ray is suggestive of a pneumonia within your right lung. Your EKG was without acute findings, you are not suffering from a heart attack at today's visit. You were given a few different medications for your headache, and we were able to get some pain relief for your headache. You may use 500 mg Tylenol or 6 oh milligrams ibuprofen every 6 hours as needed for ongoing pain management. You were started on oral antibiotics, doxycycline, please take 1 tab twice daily until gone. This medication was electronically sent [facility]. Recommend you follow-up with your regular care provider, sometime within the next 2 weeks for reevaluation to make sure that everything is getting better as expected. Do not hesitate to return to the ER if symptoms change or worsen. Sepsis Event Note (ED) - Evaluation Sepsis Screening Result: Possible Sepsis Risk - Focused Exam Vital Signs: Vital Signs Temp Pulse Resp BP Pulse Ox 10/22/20 18:21 99.4 F 95 16 138/91 H 100 - My Orders Last 24 Hours: My Active Orders 10/22/20 18:25 EKG Documentation Completion [RC] STAT 10/22/20 18:35 Chest 1V Frontal [CR] Stat UA W/MICROSCOPIC [URIN] Stat Blood Culture x2 Reflex Set [OM.PC] Stat 10/22/20 18:36 Peripheral IV Care [RC] . DIRECTED CULTURE BLOOD [BC] Stat CULTURE BLOOD [BC] Stat Sodium Chloride 0.9% [Saline Flush] 10 ml FLUSH ASDIRECTED PRN Peripheral IV Insertion Adult [OM.PC] Routine - Assessment/Plan Last 24 Hours: My Active Orders 10/22/20 18:25 EKG Documentation Completion [RC] STAT 10/22/20 18:35 Chest 1V Frontal [CR] Stat UA W/MICROSCOPIC [URIN] Stat Blood Culture x2 Reflex Set [OM.PC] Stat 10/22/20 18:36 Peripheral IV Care [RC] . DIRECTED CULTURE BLOOD [BC] Stat CULTURE BLOOD [BC] Stat Sodium Chloride 0.9% [Saline Flush] 10 ml FLUSH ASDIRECTED PRN Peripheral IV Insertion Adult [OM.PC] Routine
[2020-10-22] MEDS ORDERED: Ketorolac 30 MG/ML SDV IVPUSH ONE (19:08)
[2020-10-22 19:57] LABS: CORONAVIRUS COVID-19 NAA NEGATIVE (NEGATIVE)
[2020-10-22] MEDS ORDERED: HYDROmorphone 0.5 MG/0.5 ML Syringe IVPUSH ONE ×2 (21:08→22:05)
[2020-10-22] MEDS ORDERED: Doxycycline 100 MG Cap PO ONE (21:12)
--- NOTE | 2020-10-23 07:22 | CR ---
Chest: Portable view of the chest was obtained. Comparison: No prior chest x-ray is available, prior chest CT of 10/21/16. Heart size and mediastinum are within normal limits for portable technique. Slight density is noted within the left lung base most likely representing an area of atelectasis. Lungs otherwise are clear. Bony structures are grossly intact. Impression: 1. Slight density within the left lung base most likely representing atelectasis. 2. Nothing acute is otherwise seen on portable chest x-ray. Diagnostic code #2 I agree with preliminary report from ad, finalized on 10/22/20, 11:39 PM CDT, code 1
== END 2020-10-22 22:58 | disposition home or self-care (01) ==
LOC: JD.ED 18:13
DX: J18.9 Pneumonia, unspecified organism (principal); I10 Essential (primary) hypertension; E66.9 Obesity, unspecified; Z20.822 Contact with and (suspected) exposure to COVID-19; Z87.891 Personal history of nicotine dependence; Z79.82 Long term (current) use of aspirin; Z68.41 Body mass index [BMI] 40.0-44.9, adult
CPT/HCPCS: 0240U; 36415; 71045; 80053; 83605; 83735; 83880; 84484; 85007; 85027; 85610; 85730; 87040; 93005; 96374; 96375; 96376; 99285; A9270; J1170; J1885; 93010; 99284

== ENCOUNTER 2020-10-24 12:51 | Emergency (ER) | payer MEDICARE, OTHER ==
--- NOTE | 2020-10-24 13:52 | EDM.PDOC ---
ED HPI GENERAL MEDICAL PROBLEM - General Chief Complaint: Skin Complaint Stated Complaint: HEAD PAIN Time Seen by Provider: 10/24/20 13:01 Source of Information: Reports: Patient History Limitations: Reports: No Limitations - History of Present Illness INITIAL COMMENTS - FREE TEXT/NARRATIVE: 70-year-old male presents the emergency department today with complaints of painful rash noted to his forehead wrapping around behind his ears bilaterally. The patient states he was seen in the emergency department 2 days ago and diagnosed with community-acquired pneumonia and started on doxycycline. Patient states he had pain noted to his scalp on the day he was seen and diagnosed with pneumonia, however the area has become more erythematous and edematous. He states it is itchy and it does burn. The area around his ears is so sensitive he cannot even wear his glasses today. He denies any new lotions, shampoos, fabric softeners. He denies any sun exposure. He was started on doxycycline so this is a possibility however he states he has absolutely not been in the sun and wears a Most everywhere he goes. He denies any recent fever chills. Head Pain Score (Numeric/FACES): 10 - Related Data Allergies Allergy/AdvReac Type Severity Reaction Status Date / Time bee venom protein (honey bee) Allergy Swelling Verified 10/24/20 13:04 ethinyl estradiol Allergy Itching Verified 10/24/20 13:04 [From Seasonale ()] levonorgestrel Allergy Itching Verified 10/24/20 13:04 [From Seasonale ()] Home Meds: Home Meds Aspirin 81 mg PO DAILY 10/21/16 [History] Hydrochlorothiazide 25 mg PO BEDTIME 10/21/16 [History] lisinopriL [Zestril] 40 mg PO DAILY 10/21/16 [History] Doxycycline [Doxycycline Monohydrate] 100 mg PO BID 10/24/20 [History] Loratadine/Pseudoephedrine [Claritin-D 24 Hour Tablet] 1 each PO DAILY #14 tab.er.24h 10/24/20 [Rx] diphenhydrAMINE HCL [Benadryl] 25 mg PO Q6H PRN #28 capsule 10/24/20 [Rx] predniSONE [Prednisone] 20 mg PO BIDMEALS #17 tablet 10/24/20 [Rx] Past Medical History - Past Health History Medical/Surgical History: Denies Medical/Surgical History HEENT History: Reports: Impaired Vision Cardiovascular History: Reports: High Cholesterol, Hypertension Respiratory History: Reports: SOB Gastrointestinal History: Reports: None Genitourinary History: Reports: Renal Calculus Neurological History: Reports: None Psychiatric History: Reports: None Endocrine/Metabolic History: Reports: Obesity/BMI 30+ Hematologic History: Reports: None Immunologic History: Reports: None Dermatologic History: Reports: None - Infectious Disease History Infectious Disease History: Reports: Chicken Pox, Mumps - Past Surgical History HEENT Surgical History: Reports: Adenoidectomy, Oral Surgery, Tonsillectomy GI Surgical History: Reports: Appendectomy, Hernia, Abdominal Musculoskeletal Surgical History: Reports: Other (See Below) Other Musculoskeletal Surgeries/Procedures:: Left Shoulder Dislocation 07/29/19. Social & Family History - Family History Family Medical History: No Pertinent Family History - Tobacco Use Tobacco Use Status *Q: Never Tobacco User - Caffeine Use Caffeine Use: Reports: None - Recreational Drug Use Recreational Drug Use: No - Living Situation & Occupation Living situation: Reports: Occupation: Employed ED ROS GENERAL - Review of Systems Review Of Systems: Comprehensive ROS is negative, except as noted in HPI. ED EXAM, SKIN/RASH Exam: See Below Exam Limited By: No Limitations General Appearance: Alert, WD/WN, No Apparent Distress Ears: Normal External Exam, Normal Canal, Hearing Grossly Normal, Normal TMs Nose: Normal Inspection Throat/Mouth: Normal Inspection, Normal Lips, Normal Voice, No Airway Compromise Head: Atraumatic, Facial Swelling (forehead; v shaped with definite line of demarcation with erythema and edema), Facial Tenderness (to area of erythema) Neck: Normal Inspection, Supple, Non-Tender, Full Range of Motion, Other (area of erythema to anterior neck) Respiratory/Chest: No Respiratory Distress, No Accessory Muscle Use Cardiovascular: Normal Peripheral Pulses, Regular Rate, Rhythm GI/Abdominal: No Distention (Male) Exam: Deferred Rectal (Males) Exam: Deferred Back Exam: Normal Inspection Extremities: Normal Inspection, Normal Range of Motion, No Pedal Edema, Normal C apillary Refill Neurological: Alert, Oriented, Normal Cognition Psychiatric: Normal Affect, Normal Mood Skin: Warm, Dry, Intact. No: Normal Color (v shaped area of erythema noted to forehead that extends to the right ear anterior and posterior; also extends around the lateral portion of head behind left ear.), No Rash Location, Skin: Head, Face (forehead) Characteristics: Erythematous Associated features: Warmth, Tenderness, Swelling, Inflammation Lymphatic: No Adenopathy Course - Vital Signs Text/Narrative:: Upon assessment the patient has an area of erythema noted to his forehead almost in the shape of the V. This covers his entire forehead and bilaterally radiates behind his ears. There is definite demarcation noted to the area of erythema. There is edema noted just behind his ears as well as his forehead. Patient does have a small scratch noted to the middle of his forehead however he states that that occurred last evening when he scratched himself and the rash was already apparent. He denies any swelling of his tongue or shortness of breath. He also has an area of erythema noted to the anterior portion of his neck however this is not as well demarcated. His cheeks are also flushed in appearance. I did have Dr. Horan come in and take a look at the patient and he agrees that this looks like a contact dermatitis of some sort however the patient states he has not done anything different in his daily routines. He again states he has not been using any sunscreen to his forehead or new fragrances or shampoos. Last Recorded V/S: Last Vital Signs Temp 98.1 F 10/24/20 13:09 Pulse 75 10/24/20 13:09 Resp 18 10/24/20 13:09 BP 153/94 H 10/24/20 13:09 Pulse Ox 96 10/24/20 13:09 - Orders/Labs/Meds Meds: Medications Discontinued Medications Generic Name Dose Route Start Last Admin Trade Name Yeni PRN Reason Stop Dose Admin Diphenhydramine HCl 25 mg 10/24/20 13:53 Diphenhydramine 25 Mg Cap PO 10/24/20 13:54 ONETIME ONE Loratadine 10 mg 10/24/20 13:53 Loratadine 10 Mg Tab PO 10/24/20 13:54 ONETIME ONE Prednisone 40 mg 10/24/20 13:53 Prednisone 20 Mg Tab PO 10/24/20 13:54 ONETIME ONE - Re-Assessments/Exams Free Text/Narrative Re-Assessment/Exam: 10/24/20 13:52 We will continue the patient on his doxycycline to treat the community-acquired pneumonia. Dr. Horan did state to the patient the necessity of staying out of the sunlight while on this medication. Patient does verbally understand and agree. We will start the patient on high-dose prednisone as well as some Benadryl and Claritin. 10/24/20 14:19 Pt will be discharged to home with a prescription for prednisone; claritin; and benadryl. Departure - Departure Time of Disposition: 14:19 Disposition: Home, Self-Care 01 Condition: Good Clinical Impression: Contact dermatitis Qualifiers: Contact dermatitis type: unspecified Contact dermatitis trigger: unspecified trigger Qualified Code(s): L25.9 - Unspecified contact dermatitis, unspecified cause - Discharge Information Prescriptions: diphenhydrAMINE HCL [Benadryl] 25 mg PO Q6H PRN #28 capsule PRN Reason: Itching Loratadine/Pseudoephedrine [Claritin-D 24 Hour Tablet] 1 each PO DAILY #14 tab.er.24h predniSONE [Prednisone] 20 mg PO BIDMEALS #17 tablet Instructions: Contact Dermatitis Referrals: Teresita Yates PA-C [Primary Care Provider] - Forms: ED Department Discharge Additional Instructions: You were seen in the emergency department today with complaints of a rash to your forehead, ears and the back of your head. There is also redness noted to your cheeks and to the front of your neck. This is likely due to some kind of contact of some thing or other. Continue taking your antibiotic as prescribed. Remember that it is imperative that you stay out of the sun while taking this antibiotic. You were given prednisone, Claritin and Benadryl while you are in the emergency department today. You will need to take prednisone 40 mg every morning and then 20 mg every evening for 3 days. Then you will take prednisone 40 mg every morning for another 4 days. You will need to take Claritin 1 tab daily. You can take Benadryl every 6 hours as needed for the itching associated with the rash. These 3 medications should help to resolve the rash and the symptoms. It may take about 24 hours for you to notice the effect of the medication. Keep in mind that the prednisone may increase your appetite or make it difficult to sleep if you take it too close to bedtime. Recommend that you follow-up with your primary care physician at her next available appointment for further evaluation. Should your condition worsen or change, do not hesitate returning to the emergency department. Sepsis Event Note (ED) - Evaluation Sepsis Screening Result: No Definite Risk - Focused Exam Vital Signs: Vital Signs Temp Pulse Resp BP Pulse Ox 10/24/20 13:09 98.1 F 75 18 153/94 H 96
[2020-10-24] MEDS ORDERED: Loratadine 10 MG Tab PO ONE (13:53)
[2020-10-24] MEDS ORDERED: predniSONE 20 MG Tab PO ONE (13:53)
[2020-10-24] MEDS ORDERED: diphenhydrAMINE 25 MG Cap PO ONE (13:53)
[2020-10-24 14:55] VITALS: BP 137/74; PULSE 73
== END 2020-10-24 14:53 | disposition home or self-care (01) ==
LOC: JD.ED 12:51
DX: L25.9 Unspecified contact dermatitis, unspecified cause (principal); I10 Essential (primary) hypertension; E66.9 Obesity, unspecified; Z68.30 Body mass index [BMI] 30.0-30.9, adult; Z79.899 Other long term (current) drug therapy; Z91.030 Bee allergy status; Z91.048 Other nonmedicinal substance allergy status; Z79.82 Long term (current) use of aspirin
CPT/HCPCS: 99282; A9270; J7512; 99283

== ENCOUNTER 2025-02-18 10:07 | Emergency (ER) | payer MEDICARE, OTHER ==
[2025-02-18 10:53] LABS: BASOPHILS ABSOLUTE AUTO 0.0 K/mm3 (0.0-0.2); BASOPHILS PERCENT AUTO 0.6 % (0.0-1.0); EOSINOPHILS ABSOLUTE AUTO 0.1 K/mm3 (0.0-0.4); EOSINOPHILS PERCENT AUTO 1.3 % (0.0-6.0); IMMATURE GRAN ABSOLUTE AUTO 0.02 K/mm3 (0.00-0.05); IMMATURE GRAN PERCENT AUTO 0.3 % (0.0-0.4); LYMPHOCYTES ABSOLUTE AUTO 1.6 K/mm3 (1.0-4.8); LYMPHOCYTES PERCENT AUTO 23.6 % (24.0-44.0); MEAN PLATELET VOLUME 10.1 fl (9.4-12.4); MONOCYTES ABSOLUTE AUTO 0.5 K/mm3 (0.0-0.8); MONOCYTES PERCENT AUTO 7.5 % (0.0-8.0); NEUTROPHILS ABSOLUTE AUTO 4.6 K/mm3 (1.8-7.7); NEUTROPHILS PERCENT AUTO 66.7 % (41.0-71.0); NRBC ABSOLUTE 0.00 (0.00-0.02); NRBC PERCENT 0.0 % (0.0-0.2); PLATELET COUNT,PLT 196 K/mm3 (150-400); RED BLOOD CELL COUNT 4.62 M/mm3 (4.52-5.90); WHITE BLOOD CELL COUNT,WBC 6.83 K/mm3 (3.9-11.3)
[2025-02-18 11:20] LABS: A/G RATIO 1.2 (1-2); ALANINE AMINOTRANSFERASE,ALT 25.0 U/L (16-63); ASPARTATE AMNIOTRANSFERASE,AST 16.0 U/L (15-37); BILIRUBIN TOTAL 0.6 mg/dL (0.2-1.0); BLOOD UREA NITROGEN,BUN 22.0 mg/dL (7-18); CARBON DIOXIDE,CO2 28.0 mEq/L (21-32); CHLORIDE,CL 107.0 mEq/L (98-107); CREATINE KINASE,CK 65.0 U/L (39-308); CREATININE 1.3 mg/dL (0.7-1.3); EST CRCL DRUG DOSING (CG) 53.1 mL/min; ESTIMATED GFR 58.0 mL/min (>60); GLUCOSE RANDOM 125.0 mg/dL (70-99); POTASSIUM,K 3.1 mEq/L (3.5-5.1); PROTEIN TOTAL,TP 6.9 g/dl (6.4-8.2); SODIUM,NA 143.0 mEq/L (136-145); TROPONIN I HIGH SENSITIVITY 5.0 pg/mL (<=76)
[2025-02-18] MEDS: Potassium Chloride 20 MEQ Tab.ER PO ONE (12:09)
[2025-02-18 17:52] VITALS: BP 118/75; PULSE 65
== END 2025-02-18 14:45 | disposition home or self-care (01) ==
LOC: JD.ED 10:07
DX: R07.9 Chest pain, unspecified (principal); I10 Essential (primary) hypertension; I48.91 Unspecified atrial fibrillation; E66.9 Obesity, unspecified; Z68.33 Body mass index [BMI] 33.0-33.9, adult; Z90.49 Acquired absence of other specified parts of digestive tract; Z88.8 Allergy status to other drugs, medicaments and biological substances; Z91.030 Bee allergy status; Z79.01 Long term (current) use of anticoagulants; Z79.899 Other long term (current) drug therapy
CPT/HCPCS: 36415; 71045; 80053; 82550; 83690; 83735; 83880; 84484; 85025; 93005; 99285; A9270; 93010; 99283